=== PATIENT | female | born 1980 | race Caucasian/White ===

== ENCOUNTER 2019-03-15 12:06 | Emergency (ER) | payer OTHER ==
[~2019-03-15] VITALS: Ht 170.2 cm; Wt 95.3 kg
[2019-03-15] MEDS ORDERED: ATIVAN1 M1 PO (12:28)
[2019-03-15] MEDS ORDERED: LEXAPRO20 MG PO (12:29)
[2019-03-15] MEDS ORDERED: GLYBURIDE 5 MG T5 M1 PO (12:29)
[2019-03-15 13:03] LABS: ABSOLUTE EOSINOPHILS 0.1 thou/uL (0.0-0.7); ABSOLUTE LYMPHOCYTES 1.7 thou/uL (0.8-5.3); ABSOLUTE MONOCYTES 0.5 thou/uL (0.0-1.2); ABSOLUTE NEUTROPHILS 6.2 thou/uL (1.6-8.1); BASOPHILS 0.6 %; EOSINOPHILS 1.7 %; HEMATOCRIT 35.3 % (37.0-47.0); HEMOGLOBIN 11.8 gm/dL (12.0-15.0); LYMPHOCYTES 19.5 %; MCH 27.1 pg (26.0-34.0); MCHC 33.6 g/dL (28.0-37.0); MCV 80.9 fL (80.0-100.0); MONOCYTES 5.4 %; MPV 9.1 fl. (7.2-11.1); NUCLEATED RBCS 0 /100WBC; PLATELET COUNT* 268 thou/uL (150-400); POLYS 72.8 %; RBC 4.36 mil/uL (4.20-5.00); RDW-CV 15.9 % (10.5-14.5); WBC 8.5 thou/uL (4.0-11.0)
[2019-03-15 13:11] LABS: CALCIUM 9.1 mg/dL (8.5-10.1); CREATININE 0.7 mg/dL (0.6-1.3); POTASSIUM 3.4 mmol/L (3.5-5.1)
[2019-03-15 13:12] LABS: URINE BILIRUBIN NEGATIVE (Negative); URINE BLOOD 1+ (Negative); URINE CLARITY CLEAR; URINE COLOR YELLOW; URINE GLUCOSE-RANDOM NEGATIVE (Negative); URINE KETONES TRACE (Negative); URINE LEUKOCYTES-REFLEX NEGATIVE (Negative); URINE NITRITE-REFLEX NEGATIVE (Negative); URINE PROTEIN NEGATIVE (Negative); URINE UROBILINOGEN 0.2 E.U./dl (0.2-1.0)
[2019-03-15 13:15] LABS: ALBUMIN 3.2 g/dL (3.4-5.0); TOTAL BILIRUBIN 0.1 mg/dL (<0.1-1.0)
[2019-03-15 13:18] LABS: SQUAMOUS >10 Many /LPF (0-3)
[2019-03-15 13:19] LABS: BACTERIA-REFLEX 1-9 Few /HPF (None Seen); URINE RBC 0-2 Rare /HPF (0-2); URINE WBC-REFLEX None Seen /HPF (0-5)
[2019-03-15 13:20] LABS: CASTS None Seen /LPF (None Seen); CRYSTALS None Seen /LPF (None Seen); MUCUS 4-6 Moderate strn/LPF (None Seen)
[2019-03-15] MEDS ORDERED: HYDROCORTISONE3011 TP (14:00)
[2019-03-15] MEDS ORDERED: TRANSDERM-SCOP1 EACH TRANSDERM (14:29)
[2019-03-15 15:08] VITALS: BP 123/67
--- NOTE | 2019-03-16 14:23 | EKG ---
[place] [address] ELECTROCARDIOGRAM REPORT Name: SUYAPA MCCOY Room: [facility]#: [id number] Admission: 03/15/19 Attend Phys: Discharge: 03/15/19 Date of : 78 Report #: [id number] THIS REPORT FOR: //name// [facility] ED Test Date: 2019-03-15 Test Time: 12:38:18 Pat Name: SUYAPA MCCOY Department: Room: Gender: F Speech Therapist Early Intervention: OLY : 1980 Requested By: Diane Trivedi Order Number: [id number] MD: Corbin Fuentes Measurements Intervals [place] Rate: 82 P: 44 [place]: 190 QRS: 24 QRSD: 76 T: 40 QT: 354 QTc: 414 Interpretive Statements Sinus rhythm Low voltage, precordial leads Nonspecific T abnrm, anterolateral leads No previous ECG available for comparison Electronically Signed On 03-16-2019 14:23:08 CDT by Corbin Fuentes [email or web address] <ELECTRONICALLY SIGNED> By: Mirna Fuentes MD, [facility] 03/16/19 1423 1238 1238 Mirna Fuentes MD, FACC /EPI
== END 2019-03-15 15:09 | disposition home or self-care (01) ==
LOC: M.ERS 12:06
PROVIDERS: Nurse Practitioner Family
DX: L25.9 Unspecified contact dermatitis, unspecified cause (principal); H81.10 Benign paroxysmal vertigo, unspecified ear; H53.8 Other visual disturbances; F41.9 Anxiety disorder, unspecified; E11.9 Type 2 diabetes mellitus without complications; Z88.0 Allergy status to penicillin

== ENCOUNTER 2019-03-22 11:14 | Emergency (ER) | payer OTHER ==
[~2019-03-22] VITALS: Ht 170.2 cm; Wt 90.7 kg
[~2019-03-22 11:14] MED LIST: ATIVAN1 M1 PO; GLYBURIDE 5 MG T5 M1 PO; HYDROCORTISONE3011 TP; LEXAPRO20 MG PO; TRANSDERM-SCOP1 EACH TRANSDERM
[2019-03-22 11:27] VITALS: BP 151/76
[2019-03-22] MEDS ORDERED: PREDNISONE 20 M20 MG PO (11:46)
[2019-03-22] MEDS ORDERED: HYDROXYZINE HCL25 M2 PO (11:47)
[2019-03-22] MEDS ORDERED: TRIAMCINOLONE A80 G2 TOP (11:47)
== END 2019-03-22 11:49 | disposition home or self-care (01) ==
LOC: M.ERS 11:14
DX: L25.9 Unspecified contact dermatitis, unspecified cause (principal); Z88.0 Allergy status to penicillin; F17.210 Nicotine dependence, cigarettes, uncomplicated; E11.9 Type 2 diabetes mellitus without complications; F41.9 Anxiety disorder, unspecified